=== PATIENT | female | born 1955 | race Caucasian/White ===

== ENCOUNTER → 2024-01-17 | Outpatient (CLI) | payer MEDICARE ==
--- NOTE | 2024-01-17 12:36 | CT ---
EXAMINATION TYPE: CT chest wo con CT DLP: 363.2 mGycm, Automated exposure control for dose reduction was used. DATE OF EXAM: 01/17/2024 11:40 AM COMPARISON: None available CLINICAL INDICATION:Female, 68 years old with history of R91.1 SOLITARY PULMONARY NODULE; PHH, nodule s TECHNIQUE: Multiple axial images were obtained through the chest without IV contrast. Lack of IV or o ral contrast limits evaluation of solid and hollow organ viscera. . Coronal and sagittal reformats re viewed. FINDINGS: LUNGS/ PLEURA: No pleural effusion, pneumothorax, or focal consolidation. Linear scarring and/or atel ectasis within the lingula. Few scattered pulmonary nodules including a right lower lobe somewhat spi culated 9.6 mm pulmonary nodule (series 4, image 44). Medial right upper lobe 7 mm pulmonary nodule ( series 4, image 18). Medial left upper lobe 3.7 mm pulmonary nodule (series 4, image 28). AIRWAY: Patent and unremarkable. HEART: Size within normal limits. No pericardial effusion. MEDIASTINUM: No gross evidence of adenopathy. VASCULATURE: No aortic aneurysm. Mild atherosclerotic calcification of the aorta and its branches. MUSCULOSKELETAL: No acute osseous abnormalities SOFT TISSUES/LYMPH NODES: Unremarkable. LOWER NECK: No significant findings. UPPER ABDOMEN: No significant findings. IMPRESSION: Few scattered pulmonary nodules with largest in the right lower lobe measuring up to 9.6 mm. No prior comparison available. Correlation with prior imaging is recommended to assess for interval change ot herwise consider further evaluation with PET/CT. [facility], , 01/17/2024 12:34 PM
== END | disposition home or self-care (01) ==
LOC: RADCTMAIN 11:08
PROVIDERS: ATTEND Internal Medicine Pulmonary Disease
DX: R91.1 Solitary pulmonary nodule
CPT/HCPCS: 71250